=== PATIENT | female | born 1995 | race Caucasian/White ===

== ENCOUNTER 2018-09-09 20:17 | Emergency (ER) | payer BC, OTHER ==
[~2018-09-09] VITALS: Ht 170.2 cm; Wt 65.8 kg
[2018-09-09 20:25] VITALS: BP_SYST 122
--- NOTE | 2018-09-09 20:25 | NUR ---
Pt placed to room 5 for examination
--- NOTE | 2018-09-09 20:30 | NUR ---
Pt C/O Lt pinky finger numbness and pain. Pt states she was playing dodgeball and was struck in the finger with the ball. Pt is able to move her finger, bruising and swelling noted. Pt C/O pain only on palpation. Pt denies any other symptoms at this time.
--- NOTE | 2018-09-09 20:45 | NUR ---
ER Dr. Santa at bedside examining patient.
--- NOTE | 2018-09-09 20:53 | NUR ---
Note undha in EDM - 09/09/18 at 2337 by [email or web address] Patient given written and verbal discharge instructions and verbalizes understanding. ER discussed with patient the results and treatment provided. Patient in stable condition. ID arm band removed. Rx of [place] given. Patient educated on pain management and to follow up with PMD. Pain Scale 2/10. Opportunity for questions provided and answered. Medication side effect fact sheet provided.
[2018-09-09] MEDS ORDERED: MORPHINE 4 MG/ML INJ. SYRINGE IVP ONE (23:00)
--- NOTE | 2018-09-09 23:38 | NUR ---
Pt has been medicated for pain and states she still feels significant discomfort. Dr. Santa notified and orders have been recieved. Will continue to monitor.
[2018-09-10] MEDS ORDERED: KETOROLAC TROMETHAMINE 30 MG VIAL IM ONE
--- NOTE | 2018-09-10 00:01 | NUR ---
Dr. Santa at bedside explaining the splinting and reduction proceedure with patient.
--- NOTE | 2018-09-10 00:09 | NUR ---
Dr. Santa at bedside for splint application. Pt tolerated proceedure well, pulses present. Will continue to monitor.
[2018-09-10] MEDS ORDERED: MORPHINE 2 MG/ML INJ. SYRINGE IVP ONE (00:30)
[2018-09-10] MEDS ORDERED: MORPHINE 4 MG/ML INJ. SYRINGE IVP ONE (00:30)
[2018-09-10] MEDS ORDERED: ACETAMINOPHEN 500 MG TABLET PO ONE (00:45)
[2018-09-10 00:57] VITALS: BP_SYST 122
--- NOTE | 2018-09-10 01:02 | NUR ---
Patient given written and verbal discharge instructions and verbalizes understanding. ER MD discussed with patient the results and treatment provided. Patient in stable condition. ID arm band removed. Rx of [place] given. Patient educated on pain management and to follow up with PMD. Pain Scale 0/10. Opportunity for questions provided and answered. Medication side effect fact sheet provided.
== END 2018-09-10 00:57 | disposition home or self-care (01) ==
LOC: SED 20:17
DX: S62.617A Displaced fracture of proximal phalanx of left little finger, initial encounter for closed fracture (principal); R03.0 Elevated blood-pressure reading, without diagnosis of hypertension; W21.09XA Struck by other hit or thrown ball, initial encounter; Y93.89 Activity, other specified; Y92.89 Other specified places as the place of occurrence of the external cause; Y99.8 Other external cause status
CPT/HCPCS: 26725; 73140; 81025; 96374; 96375; 99284; J1885; J2270 ×2; 99283